=== PATIENT | male | born 1960 | race Caucasian/White ===

== ENCOUNTER 2021-04-30 14:31 | Emergency (ER) | payer OTHER, SELFPAY ==
--- NOTE | ~2021-04-30 | MR_ITS ---
EXAMINATION: MRI BRAIN WITHOUT CONTRAST CLINICAL INFORMATION: Evaluate for stroke. COMPARISON: No relevant prior imaging. TECHNIQUE: Multiplanar MR imaging of the brain was performed without contrast. FINDINGS: There are a few scattered nonspecific foci of T2 FLAIR signal hyperintensity within the periventricular white matter. No acute territorial infarct. No pathological magnetic susceptibility artifact. Intracranial vascular flow voids are maintained. There is no intracranial mass effect or midline shift. No abnormal extra-axial collection. Lateral and third ventricles are normal. No hydrocephalus. Midline structures including the cervicomedullary junction are normal. No acute bone marrow signal changes. There is no mastoid middle ear effusion. Mild paranasal sinus mucosal thickening within ethmoid air cells and maxillary sinuses. Globes and orbits are symmetric. MR/MR head/brain wo con IMPRESSION: There are a few scattered nonspecific signal changes within the periventricular white matter. Otherwise unremarkable examination. No evidence of acute territorial infarct or hemorrhage.
[2021-04-30 14:57] VITALS: BP 188/96; PULSE 57; RESP 16; O2SAT 98; BMI 25.0
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
--- NOTE | 2021-04-30 15:09 | ECG_ITS ---
Test Reason : ALTERED MENTAL STATU Blood Pressure : / mmHG Vent. Rate : 056 BPM Atrial Rate : 056 BPM P-R Int : 108 ms QRS Dur : 078 ms QT Int : 436 ms P-R-T Axes : 050 -04 018 degrees QTc Int : 420 ms Sinus bradycardia with short AK Minimal voltage criteria for LVH, may be normal variant Borderline ECG When compared with ECG of 04-MAY-2004 10:49, No significant change was found Referred By: Vanessa Nieves Electronically Signed By:DEAN BERMEO
[2021-04-30 15:25] LABS: MANUAL DIFF FLAG NO
[2021-04-30 15:29] LABS: Appearance Urine CLEAR; Color Urine STRAW; Glucose Urine UA NEG (NEG); Leukocyte Esterase Urine NEG (NEG); Nitrite Urine NEG (NEG); Urine Blood NEG (NEG); Urine Ketones NEG (NEG); Urine Protein NEG (NEG-TRACE)
[2021-04-30 15:35] LABS: Prothrombin Time 11.7 SEC (9.9-13.0)
[2021-04-30 15:37] LABS: Basophils Percent Auto 0.8 % (0-2); Eosinophils Absolute Auto 0.1 X10*3/uL (0.0-0.4); Eosinophils Percent Auto 1.6 % (0-4); Hematocrit 45.5 % (42-52); Hemoglobin 15.4 g/dl (14.0-18.0); Imm Gran Abs Auto 0.01 X10*3/uL (0.00-0.03); Imm Gran Pct Auto 0.2 % (0.0-0.4); Lymphocytes Absolute Auto 1.5 X10*3/uL (1.2-4.9); Lymphocytes Percent Auto 29.1 % (20-40); Mean Corpuscular HGB Conc 33.8 g/dl (31.0-36.0); Mean Corpuscular Hemoglobin 29.6 pg (27.0-33.0); Mean Corpuscular Volume 87.5 fL (80-98); Mean Platelet Volume 11.9 fL (9.4-12.4); Monocytes Absolute Auto 0.6 X10*3/uL (0.1-1.2); Monocytes Percent Auto 12.1 % (2-11); Neutrophils Absolute Auto 2.9 X10*3/uL (2.0-8.3); Neutrophils Percent Auto 56.2 % (45-73); Platelet Count 164 X10*3/uL (160-400); Red Cell Distribution Width 13.2 % (11.0-16.0); White Blood Count 5.1 X10*3/uL (4.8-10.8)
[2021-04-30 15:38] LABS: Partial Thromboplastin Time 37.9 SEC (24.1-38.0)
[2021-04-30 15:41] LABS: Ethanol < 10 mg/dL
[2021-04-30 15:42] LABS: COVID-19 Test Negative (Negative); IDNOW Serial# 9DD0AD1C
[2021-04-30 15:45] LABS: Alanine Aminotransferase 25 U/L (0-40); Albumin Level 4.6 g/dL (3.5-5.0); Alkaline Phosphatase 69 U/L (39-117); Anion Gap 12 (12-20); Aspartate Amino Transferase 22 U/L (5-37); Bilirubin Direct 0.2 mg/dL (0.0-0.5); Bilirubin Total 0.6 mg/dL (0.0-1.0); Blood Urea Nitrogen 9 mg/dL (9-16); Calcium 9.7 mg/dL (8.4-10.2); Carbon Dioxide 28 mmol/L (22-29); Chloride 106 mmol/L (96-108); Creatinine Clr Calc Pharmacy 81.5; Estimated Glomerular Filt Rate > 60; Glucose Random 111 mg/dL (60-115); Magnesium 2.1 mg/dL (1.6-2.6); Sodium 142 mmol/L (135-145); Total Protein 7.2 g/dL (6.5-8.0)
[2021-04-30 15:49] LABS: Troponin-I High Sensitivity < 3.5 ng/L (<3.5-35.0)
[2021-04-30 16:00] LABS: Amphetamine Screen Urine Not Detected (Not Detect); Barbiturates, Urine Not Detected (Not Detect); Benzodiazepines Screen Urine Not Detected (Not Detect); Cannabinoid Screen Urine Not Detected (Not Detect); Cocaine Screen Urine Not Detected (Not Detect); Fentanyl, urine Not Detected (Not Detect); Opiate Screen Urine Not Detected (Not Detect); Phencyclidine Screen Urine Not Detected (Not Detect)
[2021-04-30 16:06] LABS: TSH reflex Free T4 1.67 uIU/mL (0.32-4.0)
--- NOTE | 2021-04-30 16:11 | P.CNNE_ITS ---
History of Present Illness Data of Consult Service Date: 04/30/21 Primary Care Provider: Unknown Physician HPI Reason for consult: Acute onset of confusion around 1 PM today This is a generally healthy 61-year-old man with a history of hypertension for which he takes medication but does not know the names. He drove to clam picker his around 1 PM and when he was driving back with her and she noted that he was a little confused and started asking him questions as to what day it was and the name of the president, and he was having some difficulty with that. He remembers getting up been going to pick her up he remembers too drive he remembers a conversation and now he feels he is better. He says he is retired from [employer] work and does not keep track of the time. He does have recall that there was a birthday on the he and his family admits after 25 April. He thinks he may have had some transient periods of confusion before. There is no history of stroke or TIA. No history of substance abuse. He did not take any medications. His sleep is usually an disrupted because he gets up many times in the night. He did not take any sedatives. Review of Systems Review of Systems: Constitutional : No Weight loss, No Fever, No Chills, No Fatigue, No Malaise ENT/Mouth : No sore throat, No Rhinorrhea Eyes: No Eye Pain, No Swelling, No Redness Cardiovascular : No Chest Pain, No SOB, No Dyspnea on Exertion, No Orthopnea, No Edema, No Palpitations Respiratory : No Cough, No Sputum, No Wheezing Gastrointestinal : No Nausea, No Vomiting, No Diarrhea, No Constipation, No abdominal Pain, No Hematochezia, No Melena Genitourinary : No Dysuria, No Urinary Frequency, No Hematuria, Musculoskeletal : No joint pain, No Myalgias, No Joint Swelling Skin : No Skin Lesions, No rash Neuro : No Weakness, No Numbness, No Dizziness, No Headache, pos confusion Psych : No Anxiety/Panic, No Depression Heme/Lymph: No Bruising, No Bleeding,No Lymphadenopathy Endocrine : No Polyuria, No Polydipsia All other systems reviewed and are negative [facility], [facility] Past Medical History Medical History (Updated 04/30/21 @ 16:16 by Roxy Lyman MD) Hypertension Social History Social History (Updated 04/30/21 @ 15:11 by Vanessa Nieves DO) Patient Tobacco Use Status: Never used Tobacco Advance Directives: No Advance Directives Information Provided: Yes Meds Allergies Allergy/AdvReac Type Severity Reaction Status Date / Time No Known Allergies Allergy Verified 04/30/21 15:05 Physical Exam Vital Signs: Vital Signs: Last Vital Signs Pulse 57 04/30/21 14:57 Resp 16 04/30/21 14:57 BP 188/96 H 04/30/21 14:57 Pulse Ox 98 04/30/21 14:57 Body Mass Index 25.0 Neuro: Other: He is alert, pleasant and cooperative but no speech or language deficits. He is oriennted to month, day and year but doesn't know the exact date. He knows the name of the president and is able to do calculations. There are cranial nerves II through XII are normal. There is no drift. Muscle tone and strength are normal in all 4 extremities, deep tendon reflexes symmetrical plantar response are flexor. Gait and coordination, including tandem walking was normal. Results Labs CBC & Chem 7: 04/30/21 15:18 04/30/21 15:18 Labs: Short CBC 04/30/21 Range/Units 15:18 WBC 5.1 (4.8-10.8) X10*3/uL Hgb 15.4 (14.0-18.0) g/dl Hct 45.5 (42-52) % Plt Count 164 (160-400) X10*3/uL BMP 04/30/21 15:18 Sodium 142 Potassium 4.0 Chloride 106 Carbon Dioxide 28 BUN 9 Creatinine 0.92 Calcium 9.7 Liver Function 04/30/21 Range/Units 15:18 Total Bilirubin 0.6 (0.0-1.0) mg/dL Direct Bilirubin 0.2 (0.0-0.5) mg/dL AST 22 (5-37) U/L ALT 25 (0-40) U/L Alkaline Phosphatase 69 (39-117) U/L Albumin 4.6 (3.5-5.0) g/dL Urine 04/30/21 Range/Units 15:18 Urine Color STRAW Urine Appearance CLEAR Urine pH 7.0 (5.0-8.0) Ur Specific [place] 1.010 (1.005-1.025) Urine Protein NEG (NEG-TRACE) MG/DL Urine Glucose (UA) NEG (NEG) MG/DL Assessment and Plan (1) TIA (transient ischemic attack): Status: Acute (2) Hypertension: Status: Acute His MRI is normal, except for minor microvascular white matter changes. No acute stroke. His neurological examination is normal. I would recommend outpatient followup with his primary care physician. That his toxic screen is negative, as is his metabolic workup. He can have an outpatient carotid Doppler. Procedures Date of Service Date of Service: 04/30/21
[2021-04-30 16:27] VITALS: BP 151/91; PULSE 55; RESP 16; O2SAT 98
--- NOTE | 2021-04-30 16:42 | MHC.STROKE ---
1533 Stroke Service was notified by Dr. Nieves, patient with sudden onset of transient confusion at 1300 today whe he went to pick up man his . unable to state accurate date, time. no other focal findings. He is vague. I'm retired and I can't remember what day it is . NIHSS = 1, He was brought for a STAT MRI, no acute stroke, Dr. Lyman and I examined the patient in MRI, see his note. recommending aspirin, labs, OP carotid US, f/u with PCP and Neurology consult if she thinks it is necessary. Management of uncontrolled HTN. I provided education to the and . Dr. Nieves in also to reinforce the plan of care.
== END 2021-04-30 17:36 | disposition home or self-care (01) ==
PROVIDERS: Emergency Provider Emergency Medicine
DX: R41.82 Altered mental status, unspecified (principal); I10 Essential (primary) hypertension; R29.700 NIHSS score 0; Z20.822 Contact with and (suspected) exposure to COVID-19; Z79.899 Other long term (current) drug therapy
CPT/HCPCS: 36415; 70551; 80048; 80076; 80307; 81003; 82077; 83735; 84443; 84484; 85025; 85610; 85730; 87635; 93005; 99284; 99285

== ENCOUNTER 2021-07-13 13:27 | Outpatient (REF) | payer OTHER, SELFPAY ==
--- NOTE | ~2021-07-13 | US_ITS ---
EXAMINATION: US EXTRACRANIAL CAROTID DUPLEX, BILATERAL CLINICAL INFORMATION: TIA. COMPARISON: None TECHNIQUE: Real-time ultrasound and Doppler techniques (integrating B-mode 2-D vascular images, Doppler spectral analysis and color-flow Doppler imaging) were utilized to interrogate the extracranial carotid arteries, the vertebral arteries and proximal subclavian arteries bilaterally. The degree of stenosis is determined by criteria similar to NASCET. FINDINGS: RIGHT SIDE: 1. There is soft atherosclerotic plaque seen in the bifurcation/proximal ICA region. 2. The common carotid artery PSV proximally is 99 cm/s and distally 81 cm/s. 3. The proximal internal carotid artery velocities are 56 cm/s systolic and 16 cm/s diastolic. 4. The proximal external carotid artery PSV is 89 cm/s. 5. The vertebral artery shows antegrade flow. 6. The subclavian artery waveforms are normal. LEFT SIDE: 1. There is soft atherosclerotic plaque seen in the bifurcation/proximal ICA region. 2. The common carotid artery PSV proximally is 87 cm/s and distally 74 cm/s. 3. The proximal internal carotid artery velocities are 67.7 cm/s systolic and 21.1 cm/s diastolic. 4. The proximal external carotid artery PSV is 107 cm/s. 5. The vertebral artery shows antegrade flow. 6. The subclavian artery waveforms are normal. US/US carotid duplex BI IMPRESSION: 1. RIGHT: No hemodynamically significant stenosis. Minimal soft plaque. 2. LEFT: No hemodynamically significant stenosis. Minimal plaque. 3. Normal antegrade flow seen in both vertebral arteries.
== END 2021-07-13 13:28 | disposition home or self-care (01) ==
LOC: HO.US 13:27
PROVIDERS: Visit Provider Psychiatry & Neurology Neurology
DX: G45.9 Transient cerebral ischemic attack, unspecified (principal)
CPT/HCPCS: 93880

== ENCOUNTER 2022-02-28 07:41 | Emergency (ER) | payer OTHER, SELFPAY ==
--- NOTE | 2022-02-28 | ECG_ITS ---
Test Reason : bradycardia Blood Pressure : / mmHG Vent. Rate : 046 BPM Atrial Rate : 046 BPM P-R Int : 000 ms QRS Dur : 158 ms QT Int : 514 ms P-R-T Axes : -02 043 202 degrees QTc Int : 449 ms Sinus rhythm Complete Heart block Abnormal ECG When compared with ECG of 30-APR-2021 16:19, Rhythm change Referred By: Generic ED Physician Electronically Signed By:ROBERTO MORRIS
[2022-02-28 07:51] VITALS: BP 146/80; PULSE 46; RESP 20; TEMP 36.7; O2SAT 97; BMI 24.5
--- NOTE | 2022-02-28 08:18 | ED_ITS ---
HPI - General Adult General Chief complaint: General Medical Stated complaint: Bradycardia Time Seen by Provider: 02/28/22 08:15 Source: patient Mode of arrival: ambulatory Limitations: no limitations History of Present Illness HPI narrative: This is a 63 years old male presented to the emergency department with a chief complaint of generalized weakness and malaise, he was found to be bradycardic, no syncope Onset (ago): day(s) (4) Radiation: non-radiation Severity: mild Relieving factors: none Exacerbating factors: none Related Data Allergies Allergy/AdvReac Type Severity Reaction Status Date / Time No Known Allergies Allergy Verified 04/30/21 15:05 Review of Systems Review of Systems: Yes all other systems are reviewed and are negative Cardiovascular: Cardiovascular: Reports no additional cardiovascular complaints Respiratory: Respiratory: Reports no additional respiratory complaints [facility] Past Medical History [facility] Narrative: HTN Medical History Hypertension Family History Family History (Updated 02/28/22 @ 10:08 by Humberto Peñaloza MD) Father CAD (coronary artery disease) Mother Carotid arterial disease Social History Social History Patient Tobacco Use Status: Never used Tobacco Use of substances other than those prescribed or required for medical reasons: No Advance Directives: No Advance Directives Information Provided: Yes Physical Exam ED Vital Signs: Vital Signs - 24 hr 02/28/22 07:51 02/28/22 09:16 Temperature 98.1 F Pulse Rate 46 L 40 L Respiratory Rate 20 18 Blood Pressure 146/80 H 157/75 H Pulse Oximetry 97 97 Oxygen Delivery Method Room Air Room Air BMI result Body Mass Index 24.5 Const General: cooperative Nutritional Appearance: well nourished Orientation/consciousness: patient oriented x3 HENMT Head: Yes normal to inspection General nose exam: Normal external nose present Face and sinus: Yes normal facial exam Mouth: Normal oral and palatal mucosa present Throat: Yes posterior oropharynx normal Neck Neck: Yes normal visual inspection and Yes full ROM Chest Chest palpation & inspection: normal inspection of the chest Resp Effort & Inspection: normal respiratory effort and able to speak in complete sentences Cardio Jugular venous distension: no JVD Rate: regular rate Rhythm: regular rhythm GI Inspection: Yes normal to inspection Palpation (GI): Soft to palpation, not firm, nontender and no guarding Auscultation: normal bowel sounds Skin General skin exam: no rashes or lesions noted and elasticity normal Lesions: no lesions Rashes: no rashes Neuro General: patient oriented x3 Course Reevaluation(s) Reevaluation #1: Spoke with cardiology will see the patient in the ED Time: 08:23 Reevaluation #2: Cardiology here Dr Peñaloza Time: 12:38 Reevaluation #3: Dr Peñaloza requested transfer to [facility] ,I spoke with [facility] transfer arranged ,remain clinically unchanges Medical Decision Making Lab Data Result diagrams: 02/28/22 08:29 02/28/22 08:29 Labs: Lab Results 02/28/22 02/28/22 02/28/22 Range/Units 08:29 08:29 08:29 WBC 9.8 (4.8-10.8) X10*3/uL RBC 4.27 L (4.60-5.80) X10*6/uL Hgb 12.4 L (14.0-18.0) g/dl Hct 38.1 L (42.0-52.0) % MCV 89.2 (80.0-98.0) fL MCH 29.0 (27.0-33.0) pg MCHC 32.5 (31.0-36.0) g/dl RDW 14.5 (11.0-16.0) % Plt Count 192 (160-400) X10*3/uL MPV 10.9 (9.4-12.4) fL Immature Gran % (Auto) 0.5 H (0.0-0.4) % Neut % (Auto) 82.7 H (45-73) % Lymph % (Auto) 8.6 L (20-40) % [place] % (Auto) 7.4 (2-11) % Eos % (Auto) 0.5 (0-4) % Baso % (Auto) 0.3 (0-2) % Lymph # (Auto) 0.9 L (1.2-4.9) X10*3/uL [facility] # (Auto) 0.7 (0.1-1.2) X10*3/uL Eos # (Auto) 0.1 (0.0-0.4) X10*3/uL Baso # (Auto) 0.0 (0.0-0.2) X10*3/uL Abs Immat Gran (auto) 0.05 H (0.00-0.03) X10*3/uL Absolute Neuts (auto) 8.1 (2.0-8.3) x10*3/uL Absolute Nucleated RBC 0.000 (0.0-0.012) X10*3/uL Nucleated RBC % (auto) 0.0 (0.0-0.2) /100WBC PT 14.6 H (10.0-13.1) SEC INR 1.3 H (0.9-1.1) APTT 35.0 (24.1-38.0) SEC Sodium 138 (135-145) mmol/L Potassium 4.0 (3.3-5.1) mmol/L Chloride 107 (96-108) mmol/L Carbon Dioxide 22 (22-29) mmol/L Anion Gap 13 (12-20) BUN 18 H (9-16) mg/dL Creatinine 0.83 (0.5-1.4) mg/dL Estim Creat Clear Calc 86.2 Estimated GFR > 60 Random Glucose 213 H D (60-115) mg/dL Calcium 8.7 D (8.4-10.2) mg/dL Total Bilirubin 0.7 (0.0-1.0) mg/dL AST 104 H (5-37) U/L ALT 273 H (0-40) U/L Alkaline Phosphatase 222 H D (39-117) U/L Troponin I High Sens (<3.5-35.0) ng/L Total Protein 6.5 (6.5-8.0) g/dL Albumin 3.6 D (3.5-5.0) g/dL COVID-19 (RICARDO) (Negative) COVID-19 Clin Com 02/28/22 02/28/22 Range/Units 08:29 10:03 WBC (4.8-10.8) X10*3/uL RBC (4.60-5.80) X10*6/uL Hgb (14.0-18.0) g/dl Hct (42.0-52.0) % MCV (80.0-98.0) fL MCH (27.0-33.0) pg MCHC (31.0-36.0) g/dl RDW (11.0-16.0) % Plt Count (160-400) X10*3/uL MPV (9.4-12.4) fL Immature Gran % (Auto) (0.0-0.4) % Neut % (Auto) (45-73) % Lymph % (Auto) (20-40) % [facility] % (Auto) (2-11) % Eos % (Auto) (0-4) % Baso % (Auto) (0-2) % Lymph # (Auto) (1.2-4.9) X10*3/uL [facility] [place] # (Auto) (0.1-1.2) X10*3/uL Eos # (Auto) (0.0-0.4) X10*3/uL Baso # (Auto) (0.0-0.2) X10*3/uL Abs Immat Gran (auto) (0.00-0.03) X10*3/uL Absolute Neuts (auto) (2.0-8.3) x10*3/uL Absolute Nucleated RBC (0.0-0.012) X10*3/uL Nucleated RBC % (auto) (0.0-0.2) /100WBC PT (10.0-13.1) SEC INR (0.9-1.1) APTT (24.1-38.0) SEC Sodium (135-145) mmol/L Potassium (3.3-5.1) mmol/L Chloride (96-108) mmol/L Carbon Dioxide (22-29) mmol/L Anion Gap (12-20) BUN (9-16) mg/dL Creatinine (0.5-1.4) mg/dL Estim Creat Clear Calc Estimated GFR Random Glucose (60-115) mg/dL Calcium (8.4-10.2) mg/dL Total Bilirubin (0.0-1.0) mg/dL AST (5-37) U/L ALT (0-40) U/L Alkaline Phosphatase (39-117) U/L Troponin I High Sens < 3.5 (<3.5-35.0) ng/L Total Protein (6.5-8.0) g/dL Albumin (3.5-5.0) g/dL COVID-19 (RICARDO) Negative (Negative) COVID-19 Clin Com See Note ECG Data Attestation: I personally reviewed and interpreted this ECG as follows: Prior ECG tracings: available for review Pacemaker model: brdycardia 46 hearth block Critical Care Time Critical Care Time Critical Care Time: Yes Total Critical Care Time: 60 Attestation: taking care of the pt,talking to family/currency counter arranging transfer to [facility] Discharge Plan Discharge Clinical Impression: CHB (complete heart block) Patient Disposition: Xfer [facility] Hospital Transfer Details: by-state,requested by DR Peñaloza ,need pacemaker and nobody available at [facility] Today
[2022-02-28 08:36] LABS: Basophils Percent Auto 0.3 % (0-2); Eosinophils Absolute Auto 0.1 X10*3/uL (0.0-0.4); Eosinophils Percent Auto 0.5 % (0-4); Hematocrit 38.1 % (42.0-52.0); Hemoglobin 12.4 g/dl (14.0-18.0); Imm Gran Abs Auto 0.05 X10*3/uL (0.00-0.03); Imm Gran Pct Auto 0.5 % (0.0-0.4); Lymphocytes Absolute Auto 0.9 X10*3/uL (1.2-4.9); Lymphocytes Percent Auto 8.6 % (20-40); MANUAL DIFF FLAG NO; Mean Corpuscular HGB Conc 32.5 g/dl (31.0-36.0); Mean Corpuscular Volume 89.2 fL (80.0-98.0); Mean Platelet Volume 10.9 fL (9.4-12.4); Monocytes Absolute Auto 0.7 X10*3/uL (0.1-1.2); Monocytes Percent Auto 7.4 % (2-11); Neutrophils Absolute Auto 8.1 x10*3/uL (2.0-8.3); Neutrophils Percent Auto 82.7 % (45-73); Platelet Count 192 X10*3/uL (160-400); Red Blood Count 4.27 X10*6/uL (4.60-5.80); Red Cell Distribution Width 14.5 % (11.0-16.0); White Blood Count 9.8 X10*3/uL (4.8-10.8)
[2022-02-28 08:43] LABS: INTERNATIONAL NORM RATIO 1.3 (0.9-1.1); Prothrombin Time 14.6 SEC (10.0-13.1)
[2022-02-28 09:04] LABS: Troponin-I High Sensitivity < 3.5 ng/L (<3.5-35.0)
[2022-02-28 09:14] LABS: Alanine Aminotransferase 273 U/L (0-40); Albumin Level 3.6 g/dL (3.5-5.0); Alkaline Phosphatase 222 U/L (39-117); Anion Gap 13 (12-20); Aspartate Amino Transferase 104 U/L (5-37); Bilirubin Total 0.7 mg/dL (0.0-1.0); Blood Urea Nitrogen 18 mg/dL (9-16); Calcium 8.7 mg/dL (8.4-10.2); Carbon Dioxide 22 mmol/L (22-29); Chloride 107 mmol/L (96-108); Creatinine Clr Calc Pharmacy 86.2; Estimated Glomerular Filt Rate > 60; Glucose Random 213 mg/dL (60-115); Sodium 138 mmol/L (135-145); Total Protein 6.5 g/dL (6.5-8.0)
[2022-02-28 09:16] VITALS: BP 157/75; PULSE 40; RESP 18; O2SAT 97
[2022-02-28] MEDS: 0.9 % Sodium Chloride 1,000 ML 999 ML IVCONT (09:27)
--- NOTE | 2022-02-28 09:32 | PC.NURSE ---
@[id number] Benoit req a call to [facility] transfer line. I placed a call and tranfer to Benoit and Benoit picker box operator right away.
--- NOTE | 2022-02-28 10:05 | PM.CNCAR ---
History of Present Illness History of Present Illness Date of Service: 02/28/22 Chief complaint: Bradycardia Narrative: This is a cardiology consultation regarding heart block. Patient does not have any known cardiac problems like coronary artery disease, myocardial infarction or cardiomyopathy or in fact any other cardiac issues in the past. Recently has had some viral type symptoms including low-grade fevers cough, pain in his jaw been opening it etc. He also had some dizziness while lying down yesterday. His is an RN checked pulse oximeter that showed low heart rates. Hence in the ER. No clear symptoms like angina or shortness of breath or syncopal episodes. In the past, thought to have an episode of transient global amnesia. Otherwise, has hypertension on medications. Recently, along with the constitutional symptoms he also had whole-body rash but that seems to have resolved now. Review of Systems Review of Systems: Yes all other systems are reviewed and are negative Constitutional: Constitutional: Reports as per HPI, Reports fatigue, Reports fever(s), Reports lethargy, Reports malaise and Reports weakness Eyes: Eyes: Reports as per HPI ENT: Reports as per HPI Cardiovascular: Cardiovascular: Reports as per HPI, Denies acrocyanosis, Denies cool extremities, Denies chest pain, Denies leg edema, Denies lightheadedness, Denies palpitations and Denies dyspnea Respiratory: Respiratory: Reports as per HPI, Reports no additional respiratory complaints, Reports cough and Denies dyspnea Gastrointestinal: Gastrointestinal: Reports as per HPI and Reports no additional gastrointestinal complaints Genitourinary: Genitourinary: Reports no additional male genitourinary complaints and Reports as per HPI Musculoskeletal: Musculoskeletal: Reports no additional musculoskeletal complaints and Reports as per HPI Integumentary/Breasts: Skin/Breast: Reports system reviewed and no additional complaints, except as docu Neurologic: Reports system reviewed and no additional complaints, except as documented, Reports as per HPI and Reports weakness Psychiatric: Psychiatric: Reports no additional psychiatric complaints and Reports as per HPI Endocrine: Endocrine: Reports no additional endocrine complaints, Reports as per HPI, Reports fatigue and Denies palpitations Hematologic/Lymphatic: Hematologic/Lymphatic: Reports no additional hematologic/lymphatic complaints and Reports as per HPI Allergic/Immunologic: Allergic/Immunologic: Reports no additional allergic/immunologic complaints and Reports as per HPI [facility] Past Medical History Medical History Hypertension Family History Family History (Updated 02/28/22 @ 10:08 by Humberto Peñaloza MD) Father CAD (coronary artery disease) Mother Carotid arterial disease Social History Social History Patient Tobacco Use Status: Never used Tobacco Use of substances other than those prescribed or required for medical reasons: No Advance Directives: No Advance Directives Information Provided: Yes Meds Allergies Allergy/AdvReac Type Severity Reaction Status Date / Time No Known Allergies Allergy Verified 04/30/21 15:05 Active Medications: Current Medications Sodium Chloride (Ns) 1,000 mls @ 999 mls/hr IVCONT .Q1H1M LADONNA Stop: 02/28/22 10:30 Last Admin: 02/28/22 09:27 Dose: 999 mls/hr Ceftriaxone Sodium 1 gm/ (Sodium Chloride) 50 mls @ 100 mls/hr IV ONCE ONE Stop: 02/28/22 10:25 Physical Exam Vital Signs: Vital Signs: Last Vital Signs Temp 98.1 F 02/28/22 07:51 Pulse 40 L 02/28/22 09:16 Resp 18 02/28/22 09:16 BP 157/75 H 02/28/22 09:16 Pulse Ox 97 02/28/22 09:16 O2 Del Method 02/28/22 09:16 BMI result Body Mass Index 24.5 Const: General: comfortable and no acute distress Orientation/consciousness: patient oriented x3 HEENT: Other: Unremarkable Head: Yes normal to inspection Neck: Neck: Yes normal visual inspection Chest: Chest palpation & inspection: normal inspection of the chest Resp: Auscultation: clear to auscultation bilaterally Cardio: Palpation: normal PMI Heart sounds: S1 normal heart sound present, S2 normal heart sound present, no gallops, no murmurs and no rubs GI: Palpation (GI): Soft to palpation Back/Spine/Pelvis: Other: unremarkable Skin: General skin exam: no rashes or lesions noted Neuro: General: patient oriented x3 Extrem: General: Yes normal to inspection Psych: Mental Status: mental status grossly normal Objective Labs and Meds Result diagrams: 02/28/22 08:29 02/28/22 08:29 Lab results: Laboratory Results - last 24 hr 02/28/22 02/28/22 02/28/22 08:29 08:29 08:29 WBC 9.8 RBC 4.27 L Hgb 12.4 L Hct 38.1 L MCV 89.2 MCH 29.0 MCHC 32.5 RDW 14.5 Plt Count 192 MPV 10.9 Immature Gran % (Auto) 0.5 H Neut % (Auto) 82.7 H Lymph % (Auto) 8.6 L Patrick % (Auto) 7.4 Eos % (Auto) 0.5 Baso % (Auto) 0.3 Lymph # (Auto) 0.9 L Patrick # (Auto) 0.7 Eos # (Auto) 0.1 Baso # (Auto) 0.0 Abs Immat Gran (auto) 0.05 H Absolute Neuts (auto) 8.1 Absolute Nucleated RBC 0.000 Nucleated RBC % (auto) 0.0 PT 14.6 H INR 1.3 H APTT 35.0 Sodium 138 Potassium 4.0 Chloride 107 Carbon Dioxide 22 Anion Gap 13 BUN 18 H Creatinine 0.83 Estim Creat Clear Calc 86.2 Estimated GFR > 60 Random Glucose 213 H D Calcium 8.7 D Total Bilirubin 0.7 AST 104 H ALT 273 H Alkaline Phosphatase 222 H D Troponin I High Sens Total Protein 6.5 Albumin 3.6 D 02/28/22 08:29 WBC RBC Hgb Hct MCV MCH MCHC RDW Plt Count MPV Immature Gran % (Auto) Neut % (Auto) Lymph % (Auto) Patrick % (Auto) Eos % (Auto) Baso % (Auto) Lymph # (Auto) Patrick # (Auto) Eos # (Auto) Baso # (Auto) Abs Immat Gran (auto) Absolute Neuts (auto) Absolute Nucleated RBC Nucleated RBC % (auto) PT INR APTT Sodium Potassium Chloride Carbon Dioxide Anion Gap BUN Creatinine Estim Creat Clear Calc Estimated GFR Random Glucose Calcium Total Bilirubin AST ALT Alkaline Phosphatase Troponin I High Sens < 3.5 Total Protein Albumin ECG Interpretation: EKG with high-grade heart block with ventricular escape rhythm at 46/Min. Likely complete heart block. Prior to this, EKG from April 2021 shows sinus rhythm with no evidence of conduction system disease. Assessment and Plan (1) CHB (complete heart block): Status: Acute (2) Acute hepatitis: Status: Acute Plan By EKG and telemetry, he is in complete heart block. He seems to be perfusing normally and otherwise hemodynamically stable at this time. Etiology for the complete heart block is not clear. He is not on any rate control drugs. He is also not having any evidence of myocarditis or acute MA based on negative troponins. He did have a viral infection recently and rash but not clear if that is actually contributing to this or not. Lyme serologies have been sent. Otherwise, there is also evidence of acute hepatitis which might be from the recent viral infection. Likely needs a permanent pacemaker. Discussed with [facility] CCU, Dr. Melecio Mes[place]. Accepted for transfer. Discussed with patient as well as in great detail about pacemaker and they understand and agree with plan. Procedures Date of Service Date of Service: 02/28/22
[2022-02-28] MEDS: cefTRIAXone sodium 1 GM in 0.9 % Sodium Chloride 50 ML IV (10:14)
[2022-02-28 10:23] LABS: COVID-19 Test Negative (Negative); IDNOW Serial# 16C4AD1C
--- NOTE | 2022-02-28 12:10 | PC.NURSE ---
@ 1207PM CALL RECEIVED FROM [facility] OF [facility] PT TX LINE WITH ROOM ASSIGNMENT MASS MUTUAL 3, ROOM [id number] RN TO RN: [phone]
[2022-02-28 12:44] VITALS: BP 161/77; PULSE 47; RESP 22; TEMP 36.7; O2SAT 98
[2022-03-01 09:32] LABS: Lyme Blot >10.00 index
--- NOTE | 2022-03-03 18:57 | ED.GENADULT ---
HPI - General Adult General Chief complaint: General Medical Stated complaint: Bradycardia Time Seen by Provider: 02/28/22 08:15 Source: patient Mode of arrival: ambulatory Limitations: no limitations History of Present Illness Relieving factors: none Exacerbating factors: none Related Data Previous Rx's Medication Instructions Recorded doxycycline monohydrate 100 mg 100 mg PO BID #42 caps 03/03/22 capsule Allergies Allergy/AdvReac Type Severity Reaction Status Date / Time No Known Allergies Allergy Verified 04/30/21 15:05 [facility] Past Medical History Medical History Hypertension Family History Family History (Updated 02/28/22 @ 10:08 by Humberto Peñaloza MD) Father CAD (coronary artery disease) Mother Carotid arterial disease Social History Social History Patient Tobacco Use Status: Never used Tobacco Physical Exam ED Vital Signs: BMI result Body Mass Index 24.5 Course Reevaluation(s) Reevaluation #1: Patient is positive for lyme, Nolberto put him on doxycycline Time: 18:57 Medical Decision Making Lab Data Result diagrams: 02/28/22 08:29 02/28/22 08:29 Labs: Lab Results 02/28/22 02/28/22 02/28/22 Range/Units 08:29 08:29 08:29 WBC 9.8 (4.8-10.8) X10*3/uL RBC 4.27 L (4.60-5.80) X10*6/uL Hgb 12.4 L (14.0-18.0) g/dl Hct 38.1 L (42.0-52.0) % MCV 89.2 (80.0-98.0) fL MCH 29.0 (27.0-33.0) pg MCHC 32.5 (31.0-36.0) g/dl RDW 14.5 (11.0-16.0) % Plt Count 192 (160-400) X10*3/uL MPV 10.9 (9.4-12.4) fL Immature Gran % (Auto) 0.5 H (0.0-0.4) % Neut % (Auto) 82.7 H (45-73) % Lymph % (Auto) 8.6 L (20-40) % Rowan % (Auto) 7.4 (2-11) % Eos % (Auto) 0.5 (0-4) % Baso % (Auto) 0.3 (0-2) % Lymph # (Auto) 0.9 L (1.2-4.9) X10*3/uL [place]an # (Auto) 0.7 (0.1-1.2) X10*3/uL Eos # (Auto) 0.1 (0.0-0.4) X10*3/uL Baso # (Auto) 0.0 (0.0-0.2) X10*3/uL Abs Immat Gran (auto) 0.05 H (0.00-0.03) X10*3/uL Absolute Neuts (auto) 8.1 (2.0-8.3) x10*3/uL Absolute Nucleated RBC 0.000 (0.0-0.012) X10*3/uL Nucleated RBC % (auto) 0.0 (0.0-0.2) /100WBC PT 14.6 H (10.0-13.1) SEC INR 1.3 H (0.9-1.1) APTT 35.0 (24.1-38.0) SEC Sodium 138 (135-145) mmol/L Potassium 4.0 (3.3-5.1) mmol/L Chloride 107 (96-108) mmol/L Carbon Dioxide 22 (22-29) mmol/L Anion Gap 13 (12-20) BUN 18 H (9-16) mg/dL Creatinine 0.83 (0.5-1.4) mg/dL Estim Creat Clear Calc 86.2 Estimated GFR > 60 Random Glucose 213 H D (60-115) mg/dL Calcium 8.7 D (8.4-10.2) mg/dL Total Bilirubin 0.7 (0.0-1.0) mg/dL AST 104 H (5-37) U/L ALT 273 H (0-40) U/L Alkaline Phosphatase 222 H D (39-117) U/L Troponin I High Sens (<3.5-35.0) ng/L Total Protein 6.5 (6.5-8.0) g/dL Albumin 3.6 D (3.5-5.0) g/dL Lyme Progressive Test index COVID-19 (RICARDO) (Negative) COVID-19 Clin Com 02/28/22 02/28/22 02/28/22 Range/Units 08:29 08:29 10:03 WBC (4.8-10.8) X10*3/uL RBC (4.60-5.80) X10*6/uL Hgb (14.0-18.0) g/dl Hct (42.0-52.0) % MCV (80.0-98.0) fL MCH (27.0-33.0) pg MCHC (31.0-36.0) g/dl RDW (11.0-16.0) % Plt Count (160-400) X10*3/uL MPV (9.4-12.4) fL Immature Gran % (Auto) (0.0-0.4) % Neut % (Auto) (45-73) % Lymph % (Auto) (20-40) % Rowan % (Auto) (2-11) % Eos % (Auto) (0-4) % Baso % (Auto) (0-2) % Lymph # (Auto) (1.2-4.9) X10*3/uL Rowan # (Auto) (0.1-1.2) X10*3/uL Eos # (Auto) (0.0-0.4) X10*3/uL Baso # (Auto) (0.0-0.2) X10*3/uL Abs Immat Gran (auto) (0.00-0.03) X10*3/uL Absolute Neuts (auto) (2.0-8.3) x10*3/uL Absolute Nucleated RBC (0.0-0.012) X10*3/uL Nucleated RBC % (auto) (0.0-0.2) /100WBC PT (10.0-13.1) SEC INR (0.9-1.1) APTT (24.1-38.0) SEC Sodium (135-145) mmol/L Potassium (3.3-5.1) mmol/L Chloride (96-108) mmol/L Carbon Dioxide (22-29) mmol/L Anion Gap (12-20) BUN (9-16) mg/dL Creatinine (0.5-1.4) mg/dL Estim Creat Clear Calc Estimated GFR Random Glucose (60-115) mg/dL Calcium (8.4-10.2) mg/dL Total Bilirubin (0.0-1.0) mg/dL AST (5-37) U/L ALT (0-40) U/L Alkaline Phosphatase (39-117) U/L Troponin I High Sens < 3.5 (<3.5-35.0) ng/L Total Protein (6.5-8.0) g/dL Albumin (3.5-5.0) g/dL Lyme Progressive Test >10.00 H index COVID-19 (RICARDO) Negative (Negative) COVID-19 Clin Com See Note Discharge Plan Discharge Clinical Impression: CHB (complete heart block) Patient Disposition: Xfer Acute Care Hospital Transfer Details: by-state,requested by DR Peñaloza ,need pacemaker and nobody available at [place] Today Prescriptions: New doxycycline monohydrate 100 mg capsule 100 mg PO BID Qty: 42 0RF Interventions: Acute Care Transfer Worksheet (ED) Last Done: 02/28/22 12:46 Discharge Date/Time: 02/28/22 12:47
[2022-03-05 11:31] LABS: 18 KD (IgG) Band NON-REACTIVE; 23 KD (IgG) Band REACTIVE; 23 KD (IgM) Band REACTIVE; 28 KD (IgG) Band NON-REACTIVE; 30 KD (IgG) Band NON-REACTIVE; 39 KD (IgM) Band NON-REACTIVE; 39KD (IgG) Band NON-REACTIVE; 41 KD (IgM) Band REACTIVE; 41KD (IgG) Band REACTIVE; 45 KD (IgG) Band NON-REACTIVE; 58 KD (IgG) Band NON-REACTIVE; 66 KD (IgG) Band NON-REACTIVE; 93 KD (IgG) Band NON-REACTIVE; Lyme IgG Blot Interp NEGATIVE (NEGATIVE); Lyme IgM Blot Interp POSITIVE (NEGATIVE)
[2022-03-05 11:32] LABS: Lyme Abs Screen POSITIVE
== END 2022-02-28 12:47 | disposition short-term general hospital (02) ==
PROVIDERS: Emergency Provider Emergency Medicine; PCP Nurse Practitioner Family
DX: I44.2 Atrioventricular block, complete (principal); B17.9 Acute viral hepatitis, unspecified; R00.1 Bradycardia, unspecified; Z20.822 Contact with and (suspected) exposure to COVID-19; Z79.899 Other long term (current) drug therapy
CPT/HCPCS: 36415; 80053; 84484; 85025; 85610; 85730; 86617; 86618; 87635; 93005; 96361; 96374; 99285; J0696

== ENCOUNTER 2022-03-04 17:33 | Emergency (ER) | payer OTHER, SELFPAY ==
--- NOTE | ~2022-03-04 | XR_ITS ---
EXAMINATION: XR CHEST CLINICAL INFORMATION: Shortness of breath COMPARISON: None TECHNIQUE: Frontal view of the chest was obtained. FINDINGS: The lungs are clear. No airspace consolidation, pleural effusion, or pneumothorax. The cardiomediastinal silhouette is within normal limits. No acute osseous injury. XR/XR chest 1V IMPRESSION: No acute pulmonary process.
[2022-03-04 17:56] VITALS: BP 170/86; PULSE 78; RESP 18; TEMP 37.7; O2SAT 98; BMI 25.0
--- NOTE | 2022-03-04 18:19 | ED.GENADULT ---
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 Patient was discharged from [facility] yesterday, initially he came here was noted to be in a complete heart block, was transferred to [facility] to get a pacemaker, patient went into a second-degree heart block type 1 therefore they did not proceed with a pacemaker. He was discharged home with daily 2 g ceftriaxone via picc line. He was told that his Lyme test was positive and was going to be called with results. He reports intermittent palpitations and some shortness of breath however none present at this time. Also reports lower back pain worse with movement better at rest. Denies any trauma to the back, urinary/bowel incontinence/retention, weakness, numbness or tingling. Patient's at the bedside reports that he did not take his blood pressure medicine this morning. Onset (ago): day(s) (5) Radiation: non-radiation Severity: moderate Relieving factors: none Exacerbating factors: none Associated symptoms: denies other symptoms Related Data Previous Rx's Medication Instructions Recorded doxycycline monohydrate 100 mg 100 mg PO BID #42 caps 03/03/22 capsule Allergies Allergy/AdvReac Type Severity Reaction Status Date / Time No Known Allergies Allergy Verified 04/30/21 15:05 Review of Systems Review of Systems: Constitutional : No Weight loss, + Fever, + Chills, + Fatigue, + Malaise ENT/Mouth : No sore throat, No Rhinorrhea Eyes: No Eye Pain, No Swelling, No Redness Cardiovascular : No Chest Pain, No SOB, No Dyspnea on Exertion, No Orthopnea, No Edema, No Palpitations Respiratory : No Cough, No Sputum, No Wheezing Gastrointestinal : No Nausea, No Vomiting, No Diarrhea, No Constipation, No abdominal Pain, No Hematochezia, No Melena Genitourinary : No Dysuria, No Urinary Frequency, No Hematuria, Musculoskeletal : + joint pain, + Myalgias, No Joint Swelling Skin : No Skin Lesions, No rash Neuro : No Weakness, No Numbness, No Dizziness, No Headache Psych : No Anxiety/Panic, No Depression All other systems reviewed and are negative Yes all other systems are reviewed and are negative [facility] Past Medical History Attestation statement: The following information was validated with the patient. Source: old records reviewed and nursing notes reviewed Medical History Hypertension Family History Family History Father CAD (coronary artery disease) Mother Carotid arterial disease Social History Social History Patient Tobacco Use Status: Never used Tobacco Advance Directives: No Advance Directives Information Provided: No Physical Exam ED Vital Signs: Vital Signs - 24 hr 03/04/22 17:56 Temperature 100 F Pulse Rate 78 Respiratory Rate 18 Blood Pressure 170/86 H Pulse Oximetry 98 Oxygen Delivery Method Room Air BMI result Body Mass Index 25.0 VSS slighy HTN however hasnt taken BP pills Appearance: Alert.? Oriented X3.? No acute distress.? Head: Normocephalic, atraumatic, no step-offs or deformities Eyes: Pupils equal, round and reactive to light.? ENT: Pharynx normal.? Neck: Normal inspection.? Neck supple.? CVS: Normal heart rate and rhythm.? Pulses normal.? Unable to appreciate a murmur. Respiratory: No respiratory distress.? Breath sounds normal.? Abdomen: Soft and nontender.? Skin: Skin warm and dry.? Normal skin color.? Normal skin turgor.? Extremities: No lower extremity edema.? No calf ttp. 5/5 strength to bilateral upper and lower extremities Back: No midline tenderness, no C-spine tenderness, full range of motion, no CVA tenderness bilaterally Neuro: Oriented X 3.? No motor deficit.? No sensory deficit. CN 2-12 intact. No saddle paresthesias. Ambulating w/ steady gait. Course Reevaluation(s) Reevaluation #1: CBC appears to be within normal limits. Patient's sodium 133, no symptoms of hyponatremia. Transaminases elevated however lower than usual. Normal lactic acid. Patient is noted to be COVID positive likely contributing to patient's symptoms of fever, back pain. Time: 18:55 Reevaluation #2: Patient is normal sinus rhythm on the monitor, troponin is negative, EKG pending. CXR wnl. Time: 20:15 Reevaluation #3: Patient's urine within normal limits. Tick panel pending. Patient will be called if there is any abnormal findings on this. Patient continues to be in a normal sinus rhythm, not complaining of chest pain or shortness of breath. At this time patient will be discharged home advised to return with new or worsening symptoms. Time: 21:20 Medical Decision Making [facility] Narrative Medical decision making narrative: 1814 62-year-old male presents with fevers, intermittent palpitations, chest discomfort status post being diagnosed with Lyme carditis. Currently getting 2 g of ceftriaxone via PICC line. Physical examination benign. Vital signs are stable, low-grade fever, hypertension however patient has not taken his blood pressure medicine. At this time I do not suspect sepsis. Likley viral in origin. No signs of cauda equina or epidural abscess, there is no midline tenderness on exam. No focal neuro deficits. Plan at this time is to discuss this case with Infectious Disease. Medical Records Medical records reviewed: Yes I reviewed the patient's medical records. Lab Data Lab results reviewed: Yes I reviewed the patient's lab results. Result diagrams: 03/04/22 18:24 03/04/22 18:24 Labs: Lab Results 03/04/22 03/04/22 03/04/22 Range/Units 18:24 18:24 18:24 WBC 10.1 (4.8-10.8) X10*3/uL RBC 4.74 (4.60-5.80) X10*6/uL Hgb 13.7 L (14.0-18.0) g/dl Hct 40.8 L (42.0-52.0) % MCV 86.1 (80.0-98.0) fL MCH 28.9 (27.0-33.0) pg MCHC 33.6 (31.0-36.0) g/dl RDW 13.9 (11.0-16.0) % Plt Count 268 D (160-400) X10*3/uL MPV 9.7 (9.4-12.4) fL Immature Gran % (Auto) 0.5 H (0.0-0.4) % Neut % (Auto) 74.2 H (45-73) % Lymph % (Auto) 10.0 L (20-40) % Collin % (Auto) 14.8 H (2-11) % Eos % (Auto) 0.2 (0-4) % Baso % (Auto) 0.3 (0-2) % Lymph # (Auto) 1.0 L (1.2-4.9) X10*3/uL Collin # (Auto) 1.5 H (0.1-1.2) X10*3/uL Eos # (Auto) 0.0 (0.0-0.4) X10*3/uL Baso # (Auto) 0.0 (0.0-0.2) X10*3/uL Abs Immat Gran (auto) 0.05 H (0.00-0.03) X10*3/uL Absolute Neuts (auto) 7.5 (2.0-8.3) x10*3/uL Absolute Nucleated RBC 0.000 (0.0-0.012) X10*3/uL Nucleated RBC % (auto) 0.0 (0.0-0.2) /100WBC Sodium 133 L (135-145) mmol/L Potassium 4.2 (3.3-5.1) mmol/L Chloride 97 (96-108) mmol/L Carbon Dioxide 24 (22-29) mmol/L Anion Gap 16 (12-20) BUN 15 (9-16) mg/dL Creatinine 0.98 (0.5-1.4) mg/dL Estim Creat Clear Calc 75.6 Estimated GFR > 60 Random Glucose 113 D (60-115) mg/dL Lactic Acid (0.5-2.0) mmol/L Calcium 9.3 D (8.4-10.2) mg/dL Magnesium 1.9 (1.6-2.6) mg/dL Total Bilirubin 0.4 (0.0-1.0) mg/dL AST 18 D (5-37) U/L ALT 70 H (0-40) U/L Alkaline Phosphatase 158 H D (39-117) U/L Troponin I High Sens (<3.5-35.0) ng/L Total Protein 7.6 (6.5-8.0) g/dL Albumin 4.1 (3.5-5.0) g/dL Urine Color Urine Appearance Urine pH (5.0-8.0) Ur Specific [place] (1.005-1.025) Urine Protein (NEG-TRACE) MG/DL Urine Glucose (UA) (NEG) MG/DL Urine Ketones (NEG) MG/DL Urine Blood (NEG) Urine Nitrite (NEG) Ur Leukocyte Esterase (NEG) Urine RBC (0) /HPF Urine WBC (0-4) /HPF Ur Squamous Epith Cells /LPF Urine Bacteria /LPF COVID-19 (RICARDO) Positive A (Negative) COVID-19 Clin Com See Note 03/04/22 03/04/22 03/04/22 Range/Units 18:24 18:31 20:49 WBC (4.8-10.8) X10*3/uL RBC (4.60-5.80) X10*6/uL Hgb (14.0-18.0) g/dl Hct (42.0-52.0) % MCV (80.0-98.0) fL MCH (27.0-33.0) pg MCHC (31.0-36.0) g/dl RDW (11.0-16.0) % Plt Count (160-400) X10*3/uL MPV (9.4-12.4) fL Immature Gran % (Auto) (0.0-0.4) % Neut % (Auto) (45-73) % Lymph % (Auto) (20-40) % [place]lin % (Auto) (2-11) % Eos % (Auto) (0-4) % Baso % (Auto) (0-2) % Lymph # (Auto) (1.2-4.9) X10*3/uL [place]lin # (Auto) (0.1-1.2) X10*3/uL Eos # (Auto) (0.0-0.4) X10*3/uL Baso # (Auto) (0.0-0.2) X10*3/uL Abs Immat Gran (auto) (0.00-0.03) X10*3/uL Absolute Neuts (auto) (2.0-8.3) x10*3/uL Absolute Nucleated RBC (0.0-0.012) X10*3/uL Nucleated RBC % (auto) (0.0-0.2) /100WBC Sodium (135-145) mmol/L Potassium (3.3-5.1) mmol/L Chloride (96-108) mmol/L Carbon Dioxide (22-29) mmol/L Anion Gap (12-20) BUN (9-16) mg/dL Creatinine (0.5-1.4) mg/dL Estim Creat Clear Calc Estimated GFR Random Glucose (60-115) mg/dL Lactic Acid 0.8 (0.5-2.0) mmol/L Calcium (8.4-10.2) mg/dL Magnesium (1.6-2.6) mg/dL Total Bilirubin (0.0-1.0) mg/dL AST (5-37) U/L ALT (0-40) U/L Alkaline Phosphatase (39-117) U/L Troponin I High Sens < 3.5 (<3.5-35.0) ng/L Total Protein (6.5-8.0) g/dL Albumin (3.5-5.0) g/dL Urine Color STRAW Urine Appearance CLEAR Urine pH 7.0 (5.0-8.0) Ur Specific [place] 1.010 (1.005-1.025) Urine Protein NEG (NEG-TRACE) MG/DL Urine Glucose (UA) NEG (NEG) MG/DL Urine Ketones NEG (NEG) MG/DL Urine Blood TRACE (NEG) Urine Nitrite NEG (NEG) Ur Leukocyte Esterase NEG (NEG) Urine RBC 1-4 (0) /HPF Urine WBC 0 (0-4) /HPF Ur Squamous Epith Cells TRACE /LPF Urine Bacteria NONE /LPF COVID-19 (RICARDO) (Negative) COVID-19 Clin Com ECG Data Attestation: I personally reviewed and interpreted this ECG as follows: Prior ECG tracings: available for review Interpretation: Ventricular rate of 68, OR normal, QRS normal, QT/QTC normal. EKG with normal sinus rhythm no ST elevations or inversions concerning for ischemia. When compared to EKG from February 2022 patient is now in a normal sinus rhythm. Critical Care Time Critical Care Time Critical Care Time: No Discharge Plan Discharge Clinical Impression: COVID-19, Fever Patient Disposition: Home, Self-Care Instructions: COVID-19 (Coronavirus Disease 2019) (ED) Additional Instructions: Take your medications as prescribed. If you were prescribed antibiotics today, it is important that you take your medication to their entirety, do not skip any doses, do not finish them early. Today you tested positive for COVID-19. Take Ibuprofen every 6 hours and Tylenol every 4 hours as needed for fevers or body aches. Quarantine for 5 days and ensure you wear a mask. After 5 days you should wear a mask for 5 days after that. Practice social distancing and good hand hygiene. Drink plenty of fluids. Follow-up with your primary care provider this week. Return to the emergency department with new or worsening symptoms. In case of emergency call 911 You can purchase a pulse oximeter from your local pharmacy or grocery store, and monitor your oxygen saturation if it goes below 94% you should return to the emergency department for further evaluation. Prescriptions: No Action doxycycline monohydrate 100 mg capsule 100 mg PO BID Qty: 42 0RF Referrals: Physician,Unknown J [Primary Care Provider] - 2 days Stand Alone Forms: Work/School Release
[2022-03-04 18:30] LABS: Basophils Percent Auto 0.3 % (0-2); Eosinophils Percent Auto 0.2 % (0-4); Hematocrit 40.8 % (42.0-52.0); Hemoglobin 13.7 g/dl (14.0-18.0); Imm Gran Abs Auto 0.05 X10*3/uL (0.00-0.03); Imm Gran Pct Auto 0.5 % (0.0-0.4); MANUAL DIFF FLAG NO; Mean Corpuscular HGB Conc 33.6 g/dl (31.0-36.0); Mean Corpuscular Hemoglobin 28.9 pg (27.0-33.0); Mean Corpuscular Volume 86.1 fL (80.0-98.0); Mean Platelet Volume 9.7 fL (9.4-12.4); Monocytes Absolute Auto 1.5 X10*3/uL (0.1-1.2); Monocytes Percent Auto 14.8 % (2-11); Neutrophils Absolute Auto 7.5 x10*3/uL (2.0-8.3); Neutrophils Percent Auto 74.2 % (45-73); Platelet Count 268 X10*3/uL (160-400); Red Blood Count 4.74 X10*6/uL (4.60-5.80); Red Cell Distribution Width 13.9 % (11.0-16.0); White Blood Count 10.1 X10*3/uL (4.8-10.8)
[2022-03-04 18:38] LABS: COVID-19 Test Positive (Negative)
--- NOTE | 2022-03-04 18:46 | ECG_ITS ---
Test Reason : SEPSIS Blood Pressure : / mmHG Vent. Rate : 068 BPM Atrial Rate : 068 BPM P-R Int : 190 ms QRS Dur : 086 ms QT Int : 398 ms P-R-T Axes : -11 -13 028 degrees QTc Int : 423 ms Normal sinus rhythm Normal ECG When compared with ECG of 28-FEB-2022 07:39, rhythm change Referred By: Justine Ratliff Electronically Signed By:ROBERTO MORRIS
[2022-03-04 18:53] LABS: Alanine Aminotransferase 70 U/L (0-40); Albumin Level 4.1 g/dL (3.5-5.0); Alkaline Phosphatase 158 U/L (39-117); Anion Gap 16 (12-20); Aspartate Amino Transferase 18 U/L (5-37); Bilirubin Total 0.4 mg/dL (0.0-1.0); Blood Urea Nitrogen 15 mg/dL (9-16); Calcium 9.3 mg/dL (8.4-10.2); Carbon Dioxide 24 mmol/L (22-29); Chloride 97 mmol/L (96-108); Creatinine Clr Calc Pharmacy 75.6; Estimated Glomerular Filt Rate > 60; Glucose Random 113 mg/dL (60-115); Magnesium 1.9 mg/dL (1.6-2.6); Potassium 4.2 mmol/L (3.3-5.1); Sodium 133 mmol/L (135-145); Total Protein 7.6 g/dL (6.5-8.0)
[2022-03-04 19:07] LABS: Lactic Acid 0.8 mmol/L (0.5-2.0)
[2022-03-04] MEDS: amLODIPine Besylate 10 MG TABLET PO (19:48)
[2022-03-04] MEDS: Ketorolac Tromethamine 15 MG/ML VIAL 30 MG IVPUSH (19:48)
[2022-03-04 19:58] LABS: Troponin-I High Sensitivity < 3.5 ng/L (<3.5-35.0)
[2022-03-04 21:01] LABS: Appearance Urine CLEAR; Color Urine STRAW; Glucose Urine UA NEG (NEG); Leukocyte Esterase Urine NEG (NEG); Nitrite Urine NEG (NEG); UACC Culture Trigger NO; Urine Blood TRACE (NEG); Urine Ketones NEG (NEG); Urine Protein NEG (NEG-TRACE)
[2022-03-04 21:10] LABS: Squamous Epithelial Cell Urine TRACE /LPF
[2022-03-04 21:11] LABS: WBC Urine 0 /HPF (0-4)
[2022-03-04 21:25] VITALS: BP 141/90; PULSE 70; RESP 17; O2SAT 96
[2022-03-07 19:46] LABS: A. Phagocytphilium DNA,RT-PCR NOT DETECTED (NOT DETECTED); Babesia Microti DNA, RT-PCR NOT DETECTED (NOT DETECTED); Borrelia Miyamotoi,DNA RT-PCR NOT DETECTED (NOT DETECTED); E.Chaffeensis DNA RT-PCR NOT DETECTED (NOT DETECTED); Lyme(Borrelia ssp)DNA RT-PCR NOT DETECTED (NOT DETECTED)
[2022-03-08 06:56] LABS: Source-Tick borne disease BLOOD
== END 2022-03-04 21:26 | disposition home or self-care (01) ==
PROVIDERS: Physician Assistant; Emergency Provider Emergency Medicine
DX: U07.1 COVID-19 (principal); R50.9 Fever, unspecified
CPT/HCPCS: 36415; 71045; 80053; 81001; 81003; 83605; 83735; 84484; 85025; 87040; 87635; 87798; 87801; 93005; 96374; 99284; J1885

== ENCOUNTER 2022-03-08 15:08 | Outpatient (REF) | payer OTHER, SELFPAY ==
--- NOTE | ~2022-03-08 | CT_ITS ---
EXAMINATION: CT ANGIOGRAM ABDOMEN AND PELVIS CLINICAL INFORMATION: Known lyme carditis activity, pulsatile mass, with back pain. COMPARISON: None. TECHNIQUE: Multiple axial images were obtained through the abdomen and pelvis following the administration of 100 mL of Omnipaque 350 intravenous contrast. Images were reviewed on a dedicated 3-D workstation. This CT examination was performed using dose optimization techniques as appropriate, variously including the following: *Automated exposure control *Adjustment of mA and/or kV according to patient size (this includes techniques or standardized protocols for targeted exams where dose is matched to indication/reason for exam; i.e. extremities or head) *Use of iterative reconstruction technique DLP: 217 mGy-cm VASCULAR FINDINGS: The abdominal aorta appears unremarkable aside from some minimal distal calcific plaque. No aneurysms, ulcerations or dissections are seen. No significant noncalcified thrombus or vegetation's are present. The common iliac arteries appear normal. The iliac bifurcations are widely patent. The external iliac arteries are free of disease. The common femoral arteries appear normal. The femoral bifurcations are widely patent with normal-appearing proximal profunda femoris and superficial femoral arteries. Main renal arteries bilaterally appear normal. There is a tiny accessory upper pole branch seen on the left. 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 The SMA is widely patent. The MINAL is widely patent. No visceral artery aneurysms are seen. NONVASCULAR FINDINGS: LUNG BASES: The visualized lung bases are unremarkable. LIVER, GALLBLADDER, AND BILIARY TREE: The liver is normal in size, shape, and attenuation. No focal hepatic lesion or biliary ductal dilatation is present. The gallbladder is unremarkable with no evidence of radiopaque gallstones, gallbladder wall thickening, or obvious pericholecystic inflammatory changes. PANCREAS: Unremarkable. SPLEEN: Unremarkable. ADRENAL GLANDS: Unremarkable. KIDNEYS AND URETERS: The kidneys are normal in size, shape, and attenuation. Tiny 3 mm right lower pole cortical mass present almost certainly a cyst but indeterminate because of its tiny size. No hydronephrosis, hydroureter, or calculi seen. No perinephric stranding. BLADDER: Unremarkable. GASTROINTESTINAL TRACT: The small and large bowel are unremarkable. The appendix is unremarkable. ABDOMINAL WALL: No significant hernia is appreciated. LYMPH NODES: Normal. VASCULAR: Unremarkable. PELVIC VISCERA: Unremarkable. OSSEOUS STRUCTURES: Unremarkable. CT/CT angio abdomen pelvis IMPRESSION: No significant abnormality. 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 No cause for a pulsatile mass is seen. No evidence of pseudoaneurysm or vegetations. Fleischner guidelines were followed.
== END 2022-03-08 15:09 | disposition home or self-care (01) ==
LOC: HO.CT 15:08
PROVIDERS: PCP Nurse Practitioner Family; Visit Provider Internal Medicine
DX: A69.20 Lyme disease, unspecified (principal); R19.00 Intra-abdominal and pelvic swelling, mass and lump, unspecified site; M54.9 Dorsalgia, unspecified
CPT/HCPCS: 74174

== ENCOUNTER 2022-10-05 14:48 | Outpatient (REF) | payer OTHER, SELFPAY ==
--- NOTE | ~2022-10-05 | XR_ITS ---
EXAMINATION: XR HIP, RIGHT CLINICAL INFORMATION: New onset of right hip pain. COMPARISON: None TECHNIQUE: Two views of the right hip. FINDINGS: Minimal right hip and pubic symphysis degenerative joint changes are seen. There is no acute fracture or dislocation. The right hemipelvis is intact with the soft tissues are unremarkable. XR/XR hip RT min 2V IMPRESSION: Minimal degenerative changes as detailed above. No acute fracture.
== END 2022-10-05 14:49 | disposition home or self-care (01) ==
LOC: HO.XRAY 14:48
PROVIDERS: PCP Internal Medicine; Visit Provider Internal Medicine
DX: M25.551 Pain in right hip (principal)
CPT/HCPCS: 73502

== ENCOUNTER 2023-02-10 11:14 | Outpatient (REF) | payer OTHER, SELFPAY ==
[2023-02-10 11:38] LABS: MANUAL DIFF FLAG NO
[2023-02-10 11:58] LABS: Basophils Percent Auto 0.4 % (0-2); Eosinophils Percent Auto 0.8 % (0-4); Hematocrit 47.3 % (42.0-52.0); Imm Gran Abs Auto 0.01 X10*3/uL (0.00-0.03); Imm Gran Pct Auto 0.2 % (0.0-0.4); Lymphocytes Absolute Auto 1.3 X10*3/uL (1.2-4.9); Lymphocytes Percent Auto 24.4 % (20-40); Mean Corpuscular HGB Conc 33.8 g/dl (31.0-36.0); Mean Corpuscular Hemoglobin 29.9 pg (27.0-33.0); Mean Corpuscular Volume 88.4 fL (80.0-98.0); Mean Platelet Volume 12.2 fL (9.4-12.4); Monocytes Absolute Auto 0.5 X10*3/uL (0.1-1.2); Monocytes Percent Auto 8.9 % (2-11); Neutrophils Absolute Auto 3.4 x10*3/uL (2.0-8.3); Neutrophils Percent Auto 65.3 % (45-73); Platelet Count 167 X10*3/uL (160-400); Red Blood Count 5.35 X10*6/uL (4.60-5.80); Red Cell Distribution Width 13.2 % (11.0-16.0); White Blood Count 5.2 X10*3/uL (4.8-10.8)
[2023-02-10 12:36] LABS: Erythrocyte Sedimentation Rate 1 MM/HR (0-15)
[2023-02-10 13:06] LABS: Alanine Aminotransferase 16 U/L (0-40); Albumin Level 4.5 g/dL (3.5-5.0); Alkaline Phosphatase 65 U/L (39-117); Anion Gap 13 (12-20); Aspartate Amino Transferase 19 U/L (5-37); Bilirubin Total 0.9 mg/dL (0.0-1.0); Blood Urea Nitrogen 14 mg/dL (9-16); C Reactive Protein < 0.04 mg/dL (< or = 0.50); Calcium 9.9 mg/dL (8.4-10.2); Carbon Dioxide 26 mmol/L (22-29); Chloride 104 mmol/L (96-108); Estimated Glomerular Filt Rate > 60; Glucose Random 107 mg/dL (60-115); Potassium 4.1 mmol/L (3.3-5.1); Prostate Specific Antigen Scr 0.21 ng/mL (<0.05-4.0); Sodium 139 mmol/L (135-145); Thyroid Stimulating Hormone 1.47 uIU/mL (0.32-4.0); Total Protein 7.1 g/dL (6.5-8.0); Vitamin B12 406 pg/mL (200-900); Vitamin D 25-OH Total 46.7 ng/mL (>30)
[2023-02-13 23:14] LABS: A. Phagocytphilium DNA,RT-PCR NOT DETECTED (NOT DETECTED); Babesia Microti DNA, RT-PCR NOT DETECTED (NOT DETECTED); Borrelia Miyamotoi,DNA RT-PCR NOT DETECTED (NOT DETECTED); E.Chaffeensis DNA RT-PCR NOT DETECTED (NOT DETECTED); Lyme(Borrelia ssp)DNA RT-PCR NOT DETECTED (NOT DETECTED)
== END 2023-02-10 11:15 | disposition home or self-care (01) ==
LOC: HO.LAB 11:14
PROVIDERS: PCP Nurse Practitioner Family; Visit Provider Nurse Practitioner Family
DX: T14.8XXA Other injury of unspecified body region, initial encounter (principal); R10.10 Upper abdominal pain, unspecified; R53.83 Other fatigue; E55.9 Vitamin D deficiency, unspecified; W57.XXXA Bitten or stung by nonvenomous insect and other nonvenomous arthropods, initial encounter; Y93.9 Activity, unspecified; Y92.9 Unspecified place or not applicable; Y99.9 Unspecified external cause status; Z20.2 Contact with and (suspected) exposure to infections with a predominantly sexual mode of transmission; Z12.5 Encounter for screening for malignant neoplasm of prostate
CPT/HCPCS: 36415; 80053; 82306; 82607; 84153; 84443; 85025; 85652; 86140; 87798; 87801

== ENCOUNTER 2023-02-14 09:22 | Outpatient (REF) | payer OTHER, SELFPAY | END 2023-02-14 09:23 | disposition home or self-care (01) | LOC: HO.LNP 09:22 | PROVIDERS: PCP Nurse Practitioner Family; Visit Provider Nurse Practitioner Family | DX: R10.10 Upper abdominal pain, unspecified (principal) | CPT/HCPCS: 87338 ==

== ENCOUNTER → 2023-02-16 08:02 | Outpatient (REF) | payer OTHER, SELFPAY ==
--- NOTE | 2023-02-16 08:05 | CA_ITS ---
Acquisition Time: 2023-02-16 08:13:31 Total Exercise Time: 00:12:54 Test Indications: CP Medications: B/P MEDS Protocol: DC Max HR: 118 BPM 75% of Pred: 157 BPM Max BP: 174/080 mmHG Max Work Load: 12.2 METS Exercise stress test exercise 12 min 54 sec of Dc protocol (max speed 3.8 mph, 16% grade, in stage 4) acheving 74% MPHR, 12.2 METs, with request to stop due to knee pain, without anginal symptoms, with isolated PACs, with normotensive response to exercise, without EKG changes at achieved workload. Test reviewed with Dr. Jorge If further cardiology workup is required pharmacoligcal stress test with Lexiscan recommended. Referred By: Beth Pérez Overread By: GLORIA JORGE MD
== END ==
LOC: HO.CARD 08:02
PROVIDERS: PCP Nurse Practitioner Family; Visit Provider Nurse Practitioner Family
DX: R07.9 Chest pain, unspecified (principal)
CPT/HCPCS: 93017

== ENCOUNTER → 2023-02-16 08:05 | Outpatient (BNV) | payer OTHER, SELFPAY | PROVIDERS: PCP Nurse Practitioner Family; Visit Provider Internal Medicine Cardiovascular Disease | DX: R07.9 Chest pain, unspecified (principal) | CPT/HCPCS: 93016; 93018 ==

== ENCOUNTER 2023-02-22 12:08 | Outpatient (REF) | payer OTHER, SELFPAY ==
[2023-02-22 14:44] LABS: Fibrinogen 398 MG/DL (259-690)
[2023-02-22 15:27] LABS: Estimated Average Glucose 111 mg/dL; Hemoglobin A1c % 5.5 %
[2023-02-22 15:38] LABS: Appearance Urine Clear; Color Urine Yellow; Glucose Urine UA Negative (Negative); Leukocyte Esterase Urine Negative (Negative); Nitrite Urine Negative (Negative); Urine Blood Negative (Negative); Urine Ketones Negative (Negative); Urine Protein Negative (Neg-Trace)
[2023-02-23 02:28] LABS: Ferritin 296 ng/mL (20-250); T4 Thyroxine 5.6 ug/dL (4.5-12.0); Vitamin D 25-OH Total 43.7 ng/mL (>30)
[2023-02-23 02:35] LABS: Cholesterol 222 mg/dL; Gamma Glutamyl Transpeptidase 24 U/L (11-51); HDL Cholesterol 54 mg/dL; Iron 66 mcg/dL (45-160); LDL Cholesterol Calculated 132 mg/dl; Lactate Dehydrogenase 153 U/L (118-273); Magnesium 2.1 mg/dL (1.6-2.6); Percent Iron Saturation 23 % (15-50); Total Iron Binding Capacity 293 mcg/dL (228-428); Triglycerides 181 mg/dL; Unsaturated Iron Binding 227 ug/dL; Uric Acid 5.4 mg/dL (3.4-7.0)
[2023-02-24 13:47] LABS: Triiodothyronine T3 Free 3.3 pg/mL (2.3-4.2)
[2023-02-24 14:17] LABS: T3 Uptake 29 % (22-35)
[2023-02-24 18:03] LABS: Homocysteine 8.1 umol/L (<11.4)
[2023-02-27 20:34] LABS: Thyroglobulin Antibodies <1 IU/mL (< or = 1)
[2023-03-01 11:02] LABS: Thyroid Peroxidase Antibodies <1 IU/mL (<9)
== END 2023-02-22 12:09 | disposition home or self-care (01) ==
LOC: HO.HMGCLDS 12:08
PROVIDERS: PCP Nurse Practitioner Family; Visit Provider Nurse Practitioner Family
DX: R53.83 Other fatigue (principal)
CPT/HCPCS: 36415; 80061; 81003; 82306; 82728; 82977; 83036; 83090; 83540; 83615; 83735; 84100; 84436; 84479; 84481; 84550; 85384; 86376; 86800

== ENCOUNTER 2024-09-03 08:39 | Outpatient (REF) | payer OTHER, SELFPAY ==
--- NOTE | ~2024-09-03 | XR_ITS ---
EXAMINATION: XR KNEE 1-2 VIEWS RIGHT HISTORY: M25.561 - Pain in right knee COMPARISON: There are no prior studies available for comparison. FINDINGS: Lateral and sunrise patellar views of the right knee are submitted. Osseous mineralization is normal. No fracture is seen on these images, although evaluation is limited without an AP view. There is likely narrowing involving the femorotibial articulation, although evaluation is not possible without an AP view. There is mild to moderate osteoarthritis of the patellofemoral compartment. There is a moderate joint effusion. XR/XR knee RT 2V IMPRESSION: Limited examination without an AP view. Mild to moderate osteoarthritis of the patellofemoral compartment. Moderate joint effusion. Electronically signed by: Srini Vega MD 09/04/2024 02:15 PM [facility]ICA
== END 2024-09-03 08:40 | disposition home or self-care (01) ==
LOC: HO.HOSX 08:39
PROVIDERS: Visit Provider Orthopaedic Surgery
DX: M25.561 Pain in right knee (principal)
CPT/HCPCS: 73560

== ENCOUNTER → 2024-09-03 12:52 | Outpatient (BNV) | payer OTHER, SELFPAY | PROVIDERS: Visit Provider Radiology Diagnostic Radiology | DX: M25.461 Effusion, right knee (principal) | CPT/HCPCS: 73560 ==

== ENCOUNTER 2024-10-18 12:21 | Outpatient (AMB) | payer OTHER, SELFPAY ==
--- NOTE | 2024-10-18 12:26 | A.OFFVIS_ITS ---
Vital Signs 10/18/24 12:28 Height 5 ft 8 in Weight 159 lb BMI 24.2 BP 184/100 H Blood Pressure Location Lt brachial Position Sitting Respiration 16 Pulse 64 Pulse Source Pulse Oximeter Pulse Oximetry (%) 97 Oxygen Delivery Method Room Air Intake Visit Reasons: (R) Knee PRP Discussion Posting Specialist Required: No Allergies No Known Allergies Allergy (Verified 11/07/24 10:22) Medication List - Last Reconciled 10/18/24 by Ifrah Ontiveros LPN lisinopril 10 mg PO DAILY walker Folding front wheeled walker HPI HPI (R) Knee PRP Discussion: Details: History of Present Illness The patient is a 64-year-old male presenting with chronic right knee pain. The onset dates back to a skiing accident in 1984. The pain is described as a stabbing sensation with an intensity of 5/10, aggravated by movement, prolonged periods of inactivity, and nighttime post-activity. The patient reports swelling. Past considerations for treatment included total knee replacement surgery, which the patient opted against. Efforts for alternative pain relief led the patient to explore PRP treatments, which they are now considering with more reputable practitioners. The patient has not engaged in cortisone injections or NSAIDs, which could precede other [id number] therapies like hyaluronic acid injections. The primary goal is pain management without invasive surgery, with an emphasis on maintaining and enhancing daily function and mobility. Pain Description - Onset: Since 1984, post-skiing accident - Quality: Stabbing sensation - Intensity: 5/10 on average - Location: Right knee - Exacerbating Factors: Movement, excessive daily activities, prolonged sitting - Relieving Factors: Not specified - Complications: Swelling, particularly noticed after sitting or at night - Functional Interference: Limits daily activities and worsens at night post- activity Physical Exam Results - MRI: Knee imaging results incomplete, missing pertinent views - X-ray: Reportedly incomplete, relevant anterior view not available Pain Management - Affect: Pain limits activity and causes discomfort, worsening quality of life - Analgesia: No current use of cortisone or NSAIDs; PRP considered - Adverse Effects: None noted from current medication regimen - Activities of Daily Living: Pain impairs mobility and activities, worse at the end of the day - Aberrant Drug Related Behaviors: No indication of misuse or early refill requests [facility] Medical History Hypertension Family History Father CAD (coronary artery disease) Mother Carotid arterial disease Social History Patient Tobacco Use Status: Never used Tobacco Current occupational status: unemployed Current occupation: rt handed Physical Exam Vital Signs: Last Vital Signs Pulse 64 10/18/24 12:28 Resp 16 10/18/24 12:28 BP 184/100 H 10/18/24 12:28 Pulse Ox 97 10/18/24 12:28 Oxygen Delivery Method Room Air 10/18/24 12:28 BMI result Body Mass Index 24.2 Assessment & Plan Assessment & Plan (1) Arthritis of right knee: Code(s): M17.11 - Unilateral primary osteoarthritis, right knee Category: Medical Plan Plan The patient?s chronic right knee pain will be managed with PRP injections combined with A2M to address inflammation and potential pain relief. We will assess the response to the treatment to decide on future rounds. Educated the p atient on the difference between PRP and inaccurately marketed stem cell therapies. Considering that cortisone and NSAIDs have not yet been utilized, alternative approaches will be considered as necessary. The patient has chosen to avoid surgical intervention at this time. Patient was informed and verbally consented to the use of an ambient scribe for clinic note documentation during this visit. Discussion Notes We discussed the current management of chronic right knee pain. I outlined PRP with A2M injections as a current approach with a cost of approximately $950 per treatment. We reviewed the differences between PRP and stem cell therapies and the concerns with misrepresented treatments at other clinics. Due to the patient's preference against invasive surgery, we will proceed with less invasive options and monitor the patient's response to initial PRP treatments. If successful, additional rounds may be planned. We discussed follow-up requirements, the possibility of incorporating hyaluronic acid in future treatments, and clarified the importance of healthy lifestyle choices to optimize treatment outcome. No concerns were expressed about current drug use, as no analgesics are currently being taken by the patient outside of non-regular NSAID use. Patient Instructions - Schedule appointment for PRP injection - Avoid NSAIDs for two weeks before and after PRP treatment - Maintain a healthy diet to improve platelet quality - Report any significant changes in symptoms - Follow through with planned procedures and treatments - Contact the office if experiencing any new or worsening symptoms or side effects - Stay informed about potential future hyaluronic acid treatments Coding Level of Care Code New Pt Level 4 (64907) Diagnoses Arthritis of right knee M17.11
[2024-10-18 12:28] VITALS: BP 184/100; PULSE 64; RESP 16; O2SAT 97; BMI 24.2
== END 2024-10-18 13:02 | disposition home or self-care (01) ==
LOC: HO.PMC 12:21
PROVIDERS: PCP Nurse Practitioner Family; Visit Provider Internal Medicine
DX: M17.11 Unilateral primary osteoarthritis, right knee (principal)
CPT/HCPCS: 99204

== ENCOUNTER 2024-11-07 07:52 | Outpatient (REF) | payer OTHER, SELFPAY ==
--- NOTE | ~2024-11-07 | FL_ITS ---
EXAMINATION: XR FLUOROSCOPY WITH IMAGES CLINICAL INFORMATION: Right knee osteoarthritis, pain management injection. COMPARISON: Right knee radiographs 08/26/2024. TECHNIQUE: Fluoroscopy provided to: Dr. Fernandes Fluoroscopy time: 0.1 minutes DAP: [id number] [id number] Images: 3 FINDINGS: 3 fluoroscopic spot images of the right knee during pain management injection. Please refer to the full procedural report for details. FL/FL guidance in treatment room IMPRESSION: Fluoroscopic guidance. Electronically signed by: Low Marquez MD 11/08/2024 09:39 AM EDT
== END 2024-11-07 07:53 | disposition home or self-care (01) ==
LOC: CF 07:52
PROVIDERS: Visit Provider Internal Medicine
DX: Z13.89 Encounter for screening for other disorder (principal)

== ENCOUNTER 2024-11-07 09:52 | Outpatient (AMB) | payer OTHER, SELFPAY ==
[2024-11-07 10:22] VITALS: BP 162/87; PULSE 59; RESP 16; O2SAT 97
--- NOTE | 2024-11-07 10:22 | A.OFFVIS_ITS ---
Vital Signs 11/07/24 10:22 11/07/24 11:09 BP 162/87 H 176/99 H Blood Pressure Location Lt brachial Lt brachial Position Sitting Sitting Respiration 16 16 Pulse 59 55 Pulse Source Pulse Oximeter Pulse Oximeter Pulse Oximetry (%) 97 97 Oxygen Delivery Method Room Air Room Air Intake Visit Reasons: right knee PRP Alarm Field Technician Required: No Allergies No Known Allergies Allergy (Verified 11/07/24 10:22) Medication List - Last Reconciled 11/07/24 by Ifrah Ontiveros LPN lisinopril 10 mg PO DAILY walker Folding front wheeled walker HPI HPI right knee PRP: Details: Patient presents for scheduled procedure. Denies any recent cough, cold, infection, fever or other significant changes in medical history since last office visit. [facility] Medical History Hypertension Family History Father CAD (coronary artery disease) Mother Carotid arterial disease Social History Patient Tobacco Use Status: Never used Tobacco Current occupational status: unemployed Current occupation: rt handed Physical Exam Vital Signs: Last Vital Signs Pulse 55 11/07/24 11:09 Resp 16 11/07/24 11:09 BP 176/99 H 11/07/24 11:09 Pulse Ox 97 11/07/24 11:09 Oxygen Delivery Method Room Air 11/07/24 11:09 Office Procedures Platelet Rich Plasma Injection PRP Joint Injection After informed written consent was obtained, pre-procedure oxygen saturation, heart rate, and blood pressure were recorded. An 18 gauge butterfly needle was used to obtain 50 mL of whole blood from the right antecubital fossa. This was then mixed with 9 mL anticoagulant citrate dextrose solution. The 60 mL mixture was counter balanced to within 1 g and spun at 3500 rpm for 10 minutes. Platelet poor plasma was then drawn using a bench top press model (Hair Scynce). 6 mL of slightly leukocyte rich PRP was isolated in a 10 cc syringe. The platelet poor plasma syringe was then connected to a protein concentrating filter. A vaclock syringe was also attached to the filter. The PPP was then flushed back and forth through the protein concentrating filter and 5 mL of A2M protein concentrate was isolated. Primary Site: right knee Prep: site was prepped using sterile technique Procedure: The patient tolerated the procedure well XCELL Platelet Plasma - 0232T 60 mL w/ Filter All charges added?: Procedure code (CPT) selection complete Assessment & Plan Assessment & Plan (1) Arthritis of right knee: Code(s): M17.11 - Unilateral primary osteoarthritis, right knee Category: Medical Plan Patient is status post right knee PRP and A2M injection. Patient tolerated p rocedure well and was discharged home in stable condition with discharge instructions. All questions were answered. We will follow-up via telephone or in clinic to assess response to therapy. A follow-up appointment was made during today's visit. Orders: Orders FL guidance in treatment room Today Arlet Turner APRN, LADLE REPAIRMAN M17.11 - Unilateral primary osteoarthritis, right knee AMB Platelet Rich Plasma (PRP) Injection Today Boogie Fernandes MD M17.11 - Unilateral primary osteoarthritis, right knee Coding Level of Care Code Procedure Only Diagnoses Arthritis of right knee M17.11 CPT Codes XCELL Kit 60mL Filter ([id number])
[2024-11-07 11:09] VITALS: BP 176/99; PULSE 55; RESP 16; O2SAT 97
== END 2024-11-07 11:13 | disposition home or self-care (01) ==
LOC: HO.PMCPRC 09:52
PROVIDERS: PCP Nurse Practitioner Family; Visit Provider Internal Medicine
DX: M17.11 Unilateral primary osteoarthritis, right knee (principal)
CPT/HCPCS: 0232T